=== PATIENT | male | born 1955 | race Caucasian/White ===

== ENCOUNTER → 2020-11-13 | Outpatient (CLI) | payer OTHER | LOC: HEART CORB 11-01 11:00 | DX: D49.89 Neoplasm of unspecified behavior of other specified sites (principal); R00.0 Tachycardia, unspecified; I10 Essential (primary) hypertension; I34.0 Nonrheumatic mitral (valve) insufficiency; I07.1 Rheumatic tricuspid insufficiency | CPT/HCPCS: 93306 ==

== ENCOUNTER → 2021-08-06 | Outpatient (CLI) | payer OTHER ==
[~2021-08-06] MED LIST: ALLOPURINOL300 MG PO; CLONIDINE HCL0.1 MG PO; DAILY-VITE TA400 MCG PO; HYDROCODONE-AC1 EAC1 PO; KEPPRA500 MG PO; LIPITOR40 MG PO; LO-DOSE ASPIRIN81 MG PO; LOSARTAN-HCTZ1 EACH PO; NORVASC5 MG PO; PROTONIX40 MG PO; ZOLOFT100 MG PO
[2021-08-06 12:32] LABS: HEMOGLOBIN 13.2 gm/dl (14.0-17.5); RED BLOOD COUNT 3.97 M/UL (4.20-5.50); WHITE BLOOD COUNT 3.4 K/UL (4.5-11.0)
== END ==
LOC: OPSV2 11:00
PROVIDERS: Orthopaedic Surgery
DX: Z01.818 Encounter for other preprocedural examination (principal); S42.402A Unspecified fracture of lower end of left humerus, initial encounter for closed fracture
CPT/HCPCS: 36415; 80048; 85025; 93005